=== PATIENT | male | born 1975 | race Caucasian/White ===

== ENCOUNTER → 2019-11-24 | Outpatient (CLI) | payer OTHER | LOC: CAT 10:32 | PROVIDERS: ATTEND Family Medicine | DX: Z13.6 Encounter for screening for cardiovascular disorders (principal); I25.10 Atherosclerotic heart disease of native coronary artery without angina pectoris; E78.00 Pure hypercholesterolemia, unspecified ==

== ENCOUNTER → 2019-11-24 | Outpatient (CLI) | payer OTHER | LOC: ULTRA 10:12 | PROVIDERS: ATTEND Family Medicine | DX: N50.3 Cyst of epididymis (principal) ==